=== PATIENT | female | born 1980 | race Two or more races ===

== ENCOUNTER 2023-07-20 16:46 | Emergency (ER) | payer MEDICAID, SELFPAY ==
--- NOTE | 2023-07-20 | ECG_ITS ---
Test Reason : CX PAIN Blood Pressure : / mmHG Vent. Rate : 076 BPM Atrial Rate : 076 BPM P-R Int : 116 ms QRS Dur : 096 ms QT Int : 378 ms P-R-T Axes : 068 074 060 degrees QTc Int : 425 ms Normal sinus rhythm Normal ECG When compared with ECG of 11-OCT-2005 12:35, No significant change was found Referred By: Generic ED Physician Electronically Signed By:TIMOTHY MATTHEWS
--- NOTE | ~2023-07-20 | XR_ITS ---
EXAMINATION: XR CHEST CLINICAL INFORMATION: Chest pain COMPARISON: None available. TECHNIQUE: Frontal view of the chest was obtained. FINDINGS: No significant abnormality is noted involving the heart, lungs, mediastinum, bony thorax or soft tissues. XR/XR chest 1V IMPRESSION: Unremarkable examination.
[2023-07-20 16:58] VITALS: BP 109/77; PULSE 85; RESP 20; TEMP 36.4; O2SAT 99; BMI 18.0
--- NOTE | 2023-07-20 17:13 | ED.CHESTPAIN ---
HPI - Chest Pain General Chief Complaint: Chest Pain Stated Complaint: chest pain Related Data Allergies Allergy/AdvReac Type Severity Reaction Status Date / Time amoxicillin Allergy Hives Verified 10/08/23 05:48 Penicillins Allergy Hives Verified 10/08/23 05:48 [facility] Social History Social History Alcohol intake: current Alcohol intake frequency: a few times a month Smoked in Last 30 Days: Yes Use of substances other than those prescribed or required for medical reasons: No Advance Directives: No Patient : No Physical Exam Vital Signs: Vital Signs: Last Vital Signs Temp 97.6 F 07/20/23 16:58 Pulse 85 07/20/23 16:58 Resp 20 07/20/23 16:58 BP 109/77 07/20/23 16:58 Pulse Ox 99 07/20/23 16:58 O2 Del Method Room Air 07/20/23 16:58 BMI result Body Mass Index 18.0 Course Course Course Narrative: [place]- 42-year-old female presents for evaluation of chest pain. The chest pain started yesterday. She reports that she has chronic left shoulder pain related to in extent that was many years ago. Plan for labs, EKG, chest x-ray Discharge Plan Discharge Clinical Impression: Chest pain Patient Disposition: Left Without Being Seen Interventions: LWBS Worksheet Last Done: 07/20/23 18:58 Discharge Date/Time: 07/20/23 19:45
== END 2023-07-20 19:45 | disposition left against medical advice (07) ==
LOC: HO.ED 19:44
PROVIDERS: Emergency Provider Emergency Medicine
DX: R07.9 Chest pain, unspecified (principal); G89.29 Other chronic pain; M25.512 Pain in left shoulder
CPT/HCPCS: 71045; 93005; 99281; 99283

== ENCOUNTER 2023-10-08 05:37 | Emergency (ER) | payer MEDICAID, SELFPAY ==
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
[2023-10-08 05:43] VITALS: BP 108/62; PULSE 78; RESP 18; TEMP 36.6; O2SAT 98; BMI 17.4
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
[2023-10-08 06:44] LABS: MANUAL DIFF FLAG NO
[2023-10-08 06:46] LABS: Basophils Percent Auto 0.4 % (0-2); Eosinophils Percent Auto 0.5 % (0-4); Hematocrit 33.5 % (37.0-47.0); Hemoglobin 11.1 g/dl (12.0-16.0); Imm Gran Abs Auto 0.02 X10*3/uL (0.00-0.03); Imm Gran Pct Auto 0.3 % (0.0-0.4); Lymphocytes Absolute Auto 1.6 X10*3/uL (1.2-4.9); Lymphocytes Percent Auto 20.9 % (20-40); Mean Corpuscular HGB Conc 33.1 g/dl (31.0-35.0); Mean Corpuscular Hemoglobin 26.6 pg (27.0-33.0); Mean Corpuscular Volume 80.3 fL (80.0-98.0); Mean Platelet Volume 10.1 fL (9.4-12.3); Monocytes Absolute Auto 0.9 X10*3/uL (0.1-1.2); Monocytes Percent Auto 11.5 % (2-11); Neutrophils Absolute Auto 5.2 x10*3/uL (2.0-8.3); Neutrophils Percent Auto 66.4 % (45-73); Platelet Count 275 X10*3/uL (160-400); Red Blood Count 4.17 X10*6/uL (4.20-5.50); Red Cell Distribution Width 17.1 % (11.0-16.0); White Blood Count 7.8 X10*3/uL (4.8-10.8)
[2023-10-08 06:52] LABS: INTERNATIONAL NORM RATIO 0.9 (0.9-1.1); Prothrombin Time 10.4 SEC (11.1-13.3)
[2023-10-08 06:55] LABS: Partial Thromboplastin Time 28.1 SEC (26.0-36.4)
[2023-10-08] MEDS: 0.9 % Sodium Chloride 1,000 ML 999 ML IV (07:02)
[2023-10-08] MEDS: Morphine Sulfate 4 MG/ML CARTRIDGE IVPUSH (07:02)
[2023-10-08] MEDS: ondansetron HCL 4 MG/2 ML VIAL IVPUSH (07:02)
[2023-10-08 07:14] LABS: Alanine Aminotransferase 13 U/L (0-31); Albumin Level 3.5 g/dL (3.5-5.0); Alkaline Phosphatase 78 U/L (39-117); Anion Gap 10 (12-20); Aspartate Amino Transferase 21 U/L (5-31); Bilirubin Total 0.1 mg/dL (0.0-1.0); Blood Urea Nitrogen 9 mg/dL (9-16); Calcium 8.8 mg/dL (8.4-10.2); Carbon Dioxide 24 mmol/L (22-29); Chloride 113 mmol/L (96-108); Creatinine Clr Calc Pharmacy 71.6; Estimated Glomerular Filt Rate > 60; Glucose Random 103 mg/dL (60-115); Lipase 40 U/L (8-78); Potassium 4.1 mmol/L (3.3-5.1); Sodium 143 mmol/L (135-145); Total Protein 6.5 g/dL (6.5-8.0)
--- NOTE | 2023-10-08 07:20 | PC.NURSE ---
assumed care of pt at 0700. pt resting quietly, sleeping on stretcher. rr even/unlabored. fluids infusing per mar. call diego within reach. plan of care ongoing.
[2023-10-08 07:26] LABS: HCG Quantitative < 2 mIU/mL
--- NOTE | 2023-10-08 08:11 | PC.NURSE ---
pt woken up to place on bedside telemetry monitor. pt stating 9/10 pain to the right side of face. area around eye and cheek appear swollen and bruised. pt also reporting 8/10 BL rib pain. pt requesting food and coffee. will have to wait until CT scan/report is back.
--- NOTE | 2023-10-08 08:20 | PC.NURSE ---
pt in CT scan
[2023-10-08] MEDS: iohexoL 350 MG/ML 100 ML INFUS..BTL IV (08:37)
[2023-10-08 09:04] VITALS: BP 123/73; PULSE 66; RESP 21; TEMP 36.6; O2SAT 100
[2023-10-08 09:52] LABS: Influenza A PCR NEGATIVE (Negative); Influenza B PCR NEGATIVE (Negative); Resp Syncy Virus RNA Qual PCR NEGATIVE (Negative); SARS COV2 PCR INHOUSE NEGATIVE (Negative)
== END 2023-10-08 09:45 | disposition home or self-care (01) ==
PROVIDERS: Emergency Medicine Emergency Medical Services; Emergency Provider Emergency Medicine
DX: S00.11XA Contusion of right eyelid and periocular area, initial encounter (principal); Y04.2XXA Assault by strike against or bumped into by another person, initial encounter; R07.9 Chest pain, unspecified; R51.9 Headache, unspecified; R10.9 Unspecified abdominal pain; F17.210 Nicotine dependence, cigarettes, uncomplicated; Y93.89 Activity, other specified; Y92.9 Unspecified place or not applicable; Y99.9 Unspecified external cause status; Z20.822 Contact with and (suspected) exposure to COVID-19; Z20.828 Contact with and (suspected) exposure to other viral communicable diseases
CPT/HCPCS: 0241U; 36415; 70450; 71260; 72125; 74177; 80053; 83690; 84702; 85025; 85610; 85730; 96361; 96374; 96375; 99284; J2270; J2405; Q9967

== ENCOUNTER 2024-02-23 18:07 | Emergency (ER) | payer MEDICAID, SELFPAY | END 2024-02-23 19:53 | disposition left against medical advice (07) | PROVIDERS: Emergency Provider Emergency Medicine | DX: M79.643 Pain in unspecified hand (principal) ==

== ENCOUNTER 2024-03-13 03:51 | Emergency (ER) | payer MEDICAID, SELFPAY ==
--- NOTE | ~2024-03-13 | XR_ITS ---
EXAMINATION: XR CHEST CLINICAL INFORMATION: Chest/rib pain after fall COMPARISON: 10/08/2023 TECHNIQUE: 2 views of the chest were obtained. FINDINGS: The lungs are clear with no focal consolidation. No evidence of pneumothorax, pulmonary edema, or pleural effusions. The cardiomediastinal silhouette is unremarkable. No acute osseous findings. XR/XR chest 2V IMPRESSION: No acute cardiopulmonary findings.
[2024-03-13 04:09] VITALS: BP 132/65; PULSE 65; RESP 19; TEMP 36.1; O2SAT 98; BMI 23.6
[2024-03-13 04:22] LABS: Basophils Percent Auto 0.4 % (0-2); Eosinophils Absolute Auto 0.1 X10*3/uL (0.0-0.4); Eosinophils Percent Auto 0.8 % (0-4); Hematocrit 34.4 % (37.0-47.0); Hemoglobin 11.6 g/dl (12.0-16.0); Imm Gran Abs Auto 0.02 X10*3/uL (0.00-0.03); Imm Gran Pct Auto 0.2 % (0.0-0.4); Lymphocytes Absolute Auto 2.7 X10*3/uL (1.2-4.9); Lymphocytes Percent Auto 27.8 % (20-40); MANUAL DIFF FLAG NO; Mean Corpuscular HGB Conc 33.7 g/dl (31.0-35.0); Mean Corpuscular Hemoglobin 27.2 pg (27.0-33.0); Mean Corpuscular Volume 80.6 fL (80.0-98.0); Mean Platelet Volume 9.9 fL (9.4-12.3); Monocytes Percent Auto 9.9 % (2-11); Neutrophils Absolute Auto 5.9 x10*3/uL (2.0-8.3); Neutrophils Percent Auto 60.9 % (45-73); Platelet Count 322 X10*3/uL (160-400); Red Blood Count 4.27 X10*6/uL (4.20-5.50); Red Cell Distribution Width 16.1 % (11.0-16.0); White Blood Count 9.6 X10*3/uL (4.8-10.8)
[2024-03-13 04:35] LABS: Anion Gap 13 (12-20); Blood Urea Nitrogen 13 mg/dL (9-16); Calcium 9.4 mg/dL (8.4-10.2); Carbon Dioxide 27 mmol/L (22-29); Chloride 101 mmol/L (96-108); Creatinine Clr Calc Pharmacy 57.7; Estimated Glomerular Filt Rate > 60; Glucose Random 117 mg/dL (60-115); Potassium 3.7 mmol/L (3.3-5.1); Sodium 137 mmol/L (135-145)
[2024-03-13 06:30] VITALS: BP 120/69; PULSE 61; RESP 16; TEMP 36.3; O2SAT 98
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
[2024-03-13 08:06] VITALS: BP 121/74; PULSE 62; RESP 16; TEMP 36.7; O2SAT 98
[2024-03-13 08:07] VITALS: BP 121/74; PULSE 62; RESP 16; TEMP 36.7; O2SAT 98
== END 2024-03-13 08:08 | disposition home or self-care (01) ==
PROVIDERS: Emergency Provider Emergency Medicine
DX: R07.81 Pleurodynia (principal); R04.0 Epistaxis; R51.9 Headache, unspecified; Z79.899 Other long term (current) drug therapy
CPT/HCPCS: 36415; 71046; 80048; 85025; 99283; 99284

== ENCOUNTER 2024-03-20 14:55 | Emergency (ER) | payer MEDICAID, SELFPAY ==
--- NOTE | 2024-03-20 | ECG_ITS ---
Test Reason : CHEST PAIN Blood Pressure : / mmHG Vent. Rate : 072 BPM Atrial Rate : 072 BPM P-R Int : 120 ms QRS Dur : 090 ms QT Int : 382 ms P-R-T Axes : 057 073 059 degrees QTc Int : 418 ms Normal sinus rhythm Normal ECG When compared with ECG of 20-JUL-2023 16:53, No significant change was found Referred By: Generic ED Physician Electronically Signed By:Chandan Nettles
[2024-03-20 14:57] VITALS: BP 110/70; PULSE 76; O2SAT 97
[2024-03-20 15:13] VITALS: BMI 21.0
--- NOTE | 2024-03-20 15:26 | ED_ITS ---
HPI - Chest Pain General Chief Complaint: Chest Pain Stated Complaint: CHEST PAIN,PT ?'S ANIETY ATTACK IN [employer] CUSTODY Time Seen by Provider: 03/20/24 15:19 Source: patient Mode of arrival: other Limitations: no limitations History of Present Illness HPI narrative: 43-year-old female past medical history of asthma and heart murmur presents emergency department after being in police custody complaining of chest pain for 2 hours she also states that her left breast is bleeding. MD complaint: chest pain Related Data Previous Rx's ?Medication ?Instructions ?Recorded fluticasone propionate 50 1 spray intranasal DAILY PRN nasal 03/13/24 mcg/actuation nasal congestion #16 grams spray,suspension (Allergy Relief (fluticasone)) lidocaine 5 % topical patch 1 patch topical DAILY #30 ea 03/13/24 acetaminophen 325 mg tablet 325 mg PO QID PRN pain #90 tabs 03/20/24 (Tylenol) ibuprofen 400 mg tablet 400 mg PO Q6H PRN Pain #60 tabs 03/20/24 Allergies Allergy/AdvReac Type Severity Reaction Status Date / Time amoxicillin Allergy Hives Verified 03/20/24 15:14 Penicillins Allergy Hives Verified 03/20/24 15:14 Review of Systems 2 Review of Systems: Review of systems: General: Patient denies any fever chills recent illness or falls Musculoskeletal: Denies back pain or body aches or other injuries HEENT: denies headache, runny nose, ear pain Respiratory: denies shortness of breath, cough Cardiovascular: chest pain no palpitations : denies dysuria, frequency Abdomen: no nausea vomiting denies abdominal pain Extremities: no swelling, no pain Skin: no diaphoresis Yes all other systems are reviewed and are negative PMFSH Past Medical History Medical History No pertinent past medical history Social History Social History Alcohol intake: former Smoked in Last 30 Days: Yes Use of substances other than those prescribed or required for medical reasons: Yes Substance Use Type: Crack/Cocaine and Marijuana Substance Use Frequency: Chronic Longstanding Last Used Substance: Days (ago) Advance Directives: No Advance Directives Information Provided: No Do you have a plan to hurt others: No Plan Physical Exam 2 Vital Signs: Vital Signs: Last Vital Signs Temp 98.4 F 03/20/24 15:30 Pulse 67 03/20/24 15:30 Resp 18 03/20/24 15:30 BP 128/85 03/20/24 15:30 Pulse Ox 97 03/20/24 15:30 O2 Del Method Room Air 03/20/24 15:30 BMI result Body Mass Index 21.0 General: Well-appearing well-nourished in no signs of distress HEENT: Normocephalic atraumatic Neck: No signs of JVD, no masses no tenderness or lymphadenopathy Cardiovascular: Regular rate and rhythm Respiratory: Clear to auscultation bilaterally Abdomen: Soft nontender no masses rectal exam performed guiac negative clinical quality manager confirmed. Extremities: Normal pedal pulses no signs of edema Skin: Dry warm no rashes Back: No tenderness full ROM Course Reevaluation(s) Reevaluation #1: Patient had normal x-ray and labs I do not have reason for pain I will send her home parents Tylenol ibuprofen which the precinct police sergeant I should make him be done. I did set her up with outpatient follow-up and explained the need for her to see a breast surgeon which he is happy to do. Patient but intermittently screaming in the hallway bone I talked to her she continued to have normal vitals and was redirectable. I do feel comfortable with her going home I do not think there is anything acute going on I do not think this is ACS or anything else concerning Medical Decision Making Medical Decision Making MDM Narrative: The patient looks x-ray was done. I will check labs EKG is normal Differential Diagnosis Differential Diagnoses: The differential diagnosis associated with the presentation includes Costochondritis chest pain ACS chest wall pain breast discharge rest mass Admission/Observation Consideration of admission/observation: Escalation of care including admission/observation considered Consult Healthcare Provider Management of the patient was discussed with: Director Of Audiology I spoke with Dr. Estrella about the breast he agrees an outpatient workup and recommended the patient follow up a breast surgeon. I spoke with Dr. Miller who is covering for breast surgery. He went the patient to have orders done for outpatient mammogram and ultrasound prior to seeing him in the office which were filled out and scheduled for outpatient orders Lab Data [facility] Lab Attestation statement: I reviewed the patient's lab results. 03/20/24 16:13 05/09/24 16:13 Labs: Lab Results 03/20/24 Range/Units 16:13 WBC 7.9 (4.8-10.8) X10*3/uL RBC 4.97 (4.20-5.50) X10*6/uL Hgb 13.2 (12.0-16.0) g/dl Hct 38.5 (37.0-47.0) % MCV 77.5 L (80.0-98.0) fL MCH 26.6 L (27.0-33.0) pg MCHC 34.3 (31.0-35.0) g/dl RDW 16.3 H (11.0-16.0) % Plt Count 323 (160-400) X10*3/uL MPV 9.9 (9.4-12.3) fL Immature Gran % (Auto) 0.4 (0.0-0.4) % Neut % (Auto) 77.9 H (45-73) % Lymph % (Auto) 15.2 L (20-40) % George % (Auto) 6.1 (2-11) % Eos % (Auto) 0.1 (0-4) % Baso % (Auto) 0.3 (0-2) % Lymph # (Auto) 1.2 (1.2-4.9) X10*3/uL George # (Auto) 0.5 (0.1-1.2) X10*3/uL Eos # (Auto) 0.0 (0.0-0.4) X10*3/uL Baso # (Auto) 0.0 (0.0-0.2) X10*3/uL Abs Immat Gran (auto) 0.03 (0.00-0.03) X10*3/uL Absolute Neuts (auto) 6.1 (2.0-8.3) x10*3/uL Absolute Nucleated RBC 0.000 (0.0-0.012) X10*3/uL Nucleated RBC % (auto) 0.0 (0.0-0.2) /100WBC Sodium 139 (135-145) mmol/L Potassium 4.0 (3.3-5.1) mmol/L Chloride 103 (96-108) mmol/L Carbon Dioxide 23 (22-29) mmol/L Anion Gap 17 (12-20) BUN 15 (9-16) mg/dL Creatinine 0.61 (0.5-1.4) mg/dL Estim Creat Clear Calc 94.0 Estimated GFR > 60 Random Glucose 95 (60-115) mg/dL Calcium 9.8 (8.4-10.2) mg/dL Troponin I High Sens < 2.7 (<3.5-17.0) ng/L Independent Interpretation I performed an independent interpretation of an: EKG and Plain X-Ray Interpretation: Rate 72 normal sinus rhythm normal intervals no signs of ischemia no change from previous interpreted by me Scores Heart Score History: -0- slightly suspicious ECG: -0- normal Age: -0- < or = 45 Risk factory: -0- no risk factors known Troponin: -0- < or = normal limit Score: 0 Risk: 1.7% Discharge Plan Discharge Clinical Impression: Chest pain Patient Disposition: Home, Self-Care Instructions: Chest Pain (DC) Additional Instructions: You were seen in the emergency department for chest pain and discharge from her left breast. Please call follow-up I did give you a referral to a breast surgeon. You had labs x-ray and everything was normal. Please call follow-up if you have any other concerns please return to the emergency department. Prescriptions: New acetaminophen [Tylenol] 325 mg tablet 325 mg PO QID PRN (Reason: pain) Qty: 90 0RF ibuprofen 400 mg tablet 400 mg PO Q6H PRN (Reason: Pain) Qty: 60 0RF No Action lidocaine 5 % adhesive patch,medicated 1 patch topical DAILY Qty: 30 0RF Rx Instructions: leave on most painful area for up to 12 hrs fluticasone propionate [Allergy Relief (fluticasone)] 50 mcg/actuation spray,suspension 1 spray intranasal DAILY PRN (Reason: nasal congestion) Qty: 16 0RF Rx Instructions: administer into each nostril Referrals: Cody Miller MD [Physician] - (Please call to follow up for your breast discharge. If you have any other concerns please return to the ER.) Print Language: Hungarian
[2024-03-20 15:30] VITALS: BP 128/85; PULSE 67; RESP 18; TEMP 36.9; O2SAT 97
[2024-03-20 16:17] LABS: MANUAL DIFF FLAG NO
[2024-03-20 16:20] LABS: Basophils Percent Auto 0.3 % (0-2); Eosinophils Percent Auto 0.1 % (0-4); Hematocrit 38.5 % (37.0-47.0); Hemoglobin 13.2 g/dl (12.0-16.0); Imm Gran Abs Auto 0.03 X10*3/uL (0.00-0.03); Imm Gran Pct Auto 0.4 % (0.0-0.4); Lymphocytes Absolute Auto 1.2 X10*3/uL (1.2-4.9); Lymphocytes Percent Auto 15.2 % (20-40); Mean Corpuscular HGB Conc 34.3 g/dl (31.0-35.0); Mean Corpuscular Hemoglobin 26.6 pg (27.0-33.0); Mean Corpuscular Volume 77.5 fL (80.0-98.0); Mean Platelet Volume 9.9 fL (9.4-12.3); Monocytes Absolute Auto 0.5 X10*3/uL (0.1-1.2); Monocytes Percent Auto 6.1 % (2-11); Neutrophils Absolute Auto 6.1 x10*3/uL (2.0-8.3); Neutrophils Percent Auto 77.9 % (45-73); Platelet Count 323 X10*3/uL (160-400); Red Blood Count 4.97 X10*6/uL (4.20-5.50); Red Cell Distribution Width 16.3 % (11.0-16.0); White Blood Count 7.9 X10*3/uL (4.8-10.8)
[2024-03-20 16:34] LABS: Anion Gap 17 (12-20); Blood Urea Nitrogen 15 mg/dL (9-16); Calcium 9.8 mg/dL (8.4-10.2); Carbon Dioxide 23 mmol/L (22-29); Chloride 103 mmol/L (96-108); Estimated Glomerular Filt Rate > 60; Glucose Random 95 mg/dL (60-115); Sodium 139 mmol/L (135-145)
[2024-03-20 16:44] LABS: Troponin-I High Sensitivity < 2.7 ng/L (<3.5-17.0)
[2024-03-20] MEDS: Ibuprofen 400 MG TABLET PO (17:11)
[2024-03-20] MEDS: Acetaminophen 325 MG TABLET 650 MG PO (17:12)
[2024-03-20 17:22] VITALS: BP 128/85; PULSE 67; RESP 18; TEMP 36.9; O2SAT 97
== END 2024-03-20 17:23 | disposition home or self-care (01) ==
PROVIDERS: Emergency Provider Student in an Organized Health Care Education/Training Program
DX: R07.89 Other chest pain (principal); F41.9 Anxiety disorder, unspecified; Z79.899 Other long term (current) drug therapy
CPT/HCPCS: 36415; 80048; 84484; 85025; 93005; 99283; 99285

== ENCOUNTER → 2024-03-20 15:03 | Outpatient (BNV) | payer MEDICAID, SELFPAY | PROVIDERS: Emergency Provider Student in an Organized Health Care Education/Training Program; Visit Provider Internal Medicine Cardiovascular Disease | DX: R07.9 Chest pain, unspecified (principal) | CPT/HCPCS: 93010 ==

== ENCOUNTER 2025-11-06 06:53 | Emergency (ER) | payer MEDICAID, SELFPAY ==
[2025-11-06 07:11] VITALS: BP 106/71; PULSE 102; RESP 18; TEMP 36.9; O2SAT 98; BMI 21.2
--- NOTE | 2025-11-06 08:05 | ED_ITS ---
HPI - General Adult General Chief complaint: General Medical Stated complaint: missed methadone Time Seen by Provider: 11/06/25 08:05 Source: patient Mode of arrival: ambulatory Limitations: no limitations History of Present Illness ED Provider: Phoebe Cobb PA-C HPI narrative: Patient is a 44 year old female with a history of opiate use (currently on methadone 80mg) presenting to the emergency department today requesting help with detox placement and her methadone dose. Patient states that she was attempting to find her who is unhoused over the last few days and now she is out of her take home methadone doses and needs to be dosed. Patient states that she has also been using on top of her methadone and would like help with detox / treatment. Patient denies any thoughts of hurting herself or anyone else. . Patient denies any other complaints at this time. Related Data Home Medications ?Medication ?Instructions ?Recorded ?Confirmed methadone 10 mg/mL oral 80 mg PO DAILY 11/06/2510/13 concentrate (Methadone Intensol) Previous Rx's ?Medication ?Instructions ?Recorded fluticasone propionate 50 1 spray intranasal DAILY PRN nasal 03/13/24 mcg/actuation nasal congestion #16 grams spray,suspension (Allergy Relief (fluticasone)) lidocaine 5 % topical patch 1 patch topical DAILY #30 ea 03/13/24 acetaminophen 325 mg tablet 325 mg PO QID PRN pain #90 tabs 03/20/24 (Tylenol) ibuprofen 400 mg tablet 400 mg PO Q6H PRN Pain #60 t abs 03/20/24 Allergies Allergy/AdvReac Type Severity Reaction Status Date / Time amoxicillin Allergy Hives Verified 11/06/25 07:12 Penicillins Allergy Hives Verified 11/06/25 07:12 Review of Systems Constitutional: Constitutional: Reports as per HPI Eyes: Eyes: Reports as per HPI ENT: Reports as per HPI Cardiovascular: Cardiovascular: Reports as per HPI Respiratory: Respiratory: Reports as per HPI Gastrointestinal: Gastrointestinal: Reports as per HPI Genitourinary: Genitourinary: Reports as per HPI Musculoskeletal: Musculoskeletal: Reports as per HPI Integumentary/Breasts: Skin/Breast: Reports as per HPI Neurologic: Reports as per HPI Psychiatric: Psychiatric: Reports as per HPI Endocrine: Endocrine: Reports as per HPI Hematologic/Lymphatic: Hematologic/Lymphatic: Reports as per HPI Allergic/Immunologic: Allergic/Immunologic: Reports as per HPI PMFSH Past Medical History Attestation statement: The following information was validated with the patient. Source: old records reviewed and nursing notes reviewed Medical History No pertinent past medical history Social History Social History Alcohol intake: former Smoked in Last 30 Days: No Use of substances other than those prescribed or required for medical reasons: No Substance Use Type: Crack/Cocaine and Marijuana Advance Directives: No Advance Directives Information Provided: No Patient : No Physical Exam ED Vital Signs: Vital Signs - 24 hr 11/06/25 07:11 11/06/25 09:13 11/06/25 09:33 Temperature 98.4 F 98.6 F 98.6 F Pulse Rate 102 H 90 90 Respiratory Rate 18 16 16 Blood Pressure 106/71 118/83 118/83 Pulse Oximetry 98 99 99 Oxygen Delivery Method Room Air Room Air Room Air BMI result Body Mass Index 21.2 Const General: cooperative, no acute distress, alert and awake Nutritional Appearance: well nourished Orientation/consciousness: patient oriented x3 HENMT Head: Yes normal to inspection and Yes atraumatic Ears: hearing grossly normal bilaterally and external ears normal General nose exam: Normal external nose present, no nasal discharge noted and no epistaxis Face and sinus: Yes normal facial exam, No abrasion and No laceration Mouth: Normal oral and palatal mucosa present, no drooling and no muffled voice Eyes General: appearance normal, both eyes and all related structures Periorbital: periorbital findings normal Eyelids: Yes eyelids normal Conjunctivae: conjunctivae normal Pupils: Equal, round and reactive pupils present EOM: EOMs intact bilaterally Neck Neck: Yes normal visual inspection and Yes full ROM Resp Effort & Inspection: normal respiratory effort and able to speak in complete sentences Neuro General: patient oriented x3, moves all extremities and CN's II-XI intact bilaterally Cranial nerves: Yes Equal, round and reactive pupils present Cognition (Neuro): normal cognition Extrem General: Yes normal to inspection, Yes full ROM and Yes capillary refill normal Psych Appearance: grossly normal Mental Status: mental status grossly normal Affect: normal affect Attitude: cooperative Thought process: Normal thought process present Thought content: Normal thought content present Insight: Good insight present (Psych) Medications Administered Discontinued Medications Generic Name Dose Route Start Last Admin Trade Name Lila GUILLORY Reason Stop Dose Admin Acetaminophen 650 mg 11/06/25 07:14 11/06/25 07:16 Acetaminophen 325 Mg Tablet PO 11/06/25 07:15 650 mg ONCE ONE Administration Ibuprofen 600 mg 11/06/25 07:14 11/06/25 07:16 Ibuprofen 600 Mg Tablet PO 11/06/25 07:15 600 mg ONCE ONE Administration Methadone HCl 80 mg 11/06/25 09:03 11/06/25 09:24 Methadone Hcl 20 Mg/2 Ml Oral.Conc PO 11/06/25 09:04 80 mg ONCE ONE Administration Naloxone HCl 8 mg 11/06/25 09:11 11/06/25 09:27 Naloxone Hcl Nasal Take Home 4 Mg [place] NOSTRILALT 11/06/25 09:12 Not Given ONCE ONE Medical Decision Making Medical Decision Making MDM Narrative: Patient is a 44 year old female with a history of opiate use (currently on methadone 80mg) presenting to the emergency department today requesting help with detox placement and her methadone dose. Patient's physical exam was as noted in the physical exam portion of this note. I explained my physical exam findings to the patient. I answered all questions asked by the patient. Patient's dose was verified. Patient was given methadone while in the department. The [facility] is open until 12pm today and the addiction team recommended she follow up with them today for help with detox placement. I stressed the importance of the patient taking her medication as directed (either prescribed or as the over the counter packaging recommends). I stressed the importance of the patient following up with her primary care provider and the [facility]. I stressed the importance of the patient returning to the emergency department immediately if she were to develop any dizziness, shortness of breath, difficulty breathing, chest pain, blurry vision, loss of vision, nausea, vomiting, abdominal pain, fever, chills, back pain, or any other complaints. Patient verbalized agreement and understanding with this treatment plan and discharge. Differential Diagnosis Differential Diagnoses: The differential diagnosis associated with the presentation includes Methadone use Substance use Opiate use disorder Admission/Observation Consideration of admission/observation: Escalation of care including admissio n/observation considered Patient would have been admitted to the hospital had her clinical presentation warranted hospital admission. Discharge Plan Discharge Clinical Impression: Methadone use, Opioid use disorder Patient Disposition: Home, Self-Care Instructions: Opioid Use Disorder (ED) Additional Instructions: You were seen in our Emergency Department for your methadone dose (80mg) and requesting assistance with decreasing your opiate use. You have been given Narcan to take home with you today, please keep it near you if you are going to use again, so others can use it on you if needed.? The number one risk for fatal overdose is using alone. [employer] is a / hotline where you can be on the phone with someone while you use, and they can call for help if they suspect an overdose: [phone] You may have been provided with safer injection?items, please take the time to take care of YOU and your health. Use new supplies whenever possible to lessen the chances of infections and other illnesses.? If you need more supplies, please go [facility]: [address] [place] [address] OR you can call or text to coordinate delivery of safer supplies: You have expressed interest in cutting down your use. Please call the numbers in the booklet provided to you OR you can go to the outpatient Addiction Treatment office which is open until 12pm today: [facility] (M-F 9am-5p) [address] [place] [address], [address] [phone] IF you are prescribed home medications and/or you are taking over the counter medications at home - it is very important you continue to do so as prescribed / directed unless told otherwise. Follow up with a primary care provider. Return to the emergency department immediately if your symptoms worsen or if you develop any numbness, tingling, dizziness, shortness of breath, difficulty breathing, chest pain, blurry vision, loss of vision, nausea, vomiting, abdominal pain, fever, chills, back pain, or any other complaints. If you do not have a primary care provider - call any of the below numbers to establish and follow up with a primary care provider. [facility] ([place]) [phone] [place] [address], [address] [facility] ([address] [place]) [phone] [address] [facility], [address] [facility], [address] [facility] ([address] [place]) [phone] [place] [address], [address] [facility], [address] [facility] ([place]) [phone] [place] [address] [address] [facility], [address] [facility] Family Medicine [phone] [address] [facility], [address] Please see the information below about our Patient Portal. If you are not yet enrolled in the [facility] Patient Portal, you will receive an enrollment email invitation following your visit to any [facility] setting. You may also self-enroll in the Patient Portal by visiting our website: [email or web address] The following information is required to access the Patient Portal: - Your [facility] Medical Record Number - Your personal home email address (must match what is in your electronic medical record, Registration staff can assist with this) - Name - Date of Capabilities of the Patient Portal: - Message some providers - View upcoming appointments - Access your health summary, medical history, and visit history - View current conditions and allergies - View procedure and lab results - View your medications, including guidelines, side effects, and precautions - Complete pre-appointment questionnaires requested by your provider - Ready summary reports of your office visits and procedures To access the Patient Portal Mobile Ana, follow these directions: - Search apomio in the Ana Store or Google Play Store - Download the Ana - Search for [facility] - Enter your login/password Prescriptions: No Action lidocaine 5 % adhesive patch,medicated 1 patch topical DAILY Qty: 30 0RF Rx Instructions: leave on most painful area for up to 12 hrs fluticasone propionate [Allergy Relief (fluticasone)] 50 mcg/actuation spray,suspension 1 spray intranasal DAILY PRN (Reason: nasal congestion) Qty: 16 0RF Rx Instructions: administer into each nostril acetaminophen [Tylenol] 325 mg tablet 325 mg PO QID PRN (Reason: pain) Qty: 90 0RF ibuprofen 400 mg tablet 400 mg PO Q6H PRN (Reason: Pain) Qty: 60 0RF methadone [Methadone Intensol] 10 mg/mL Concentrate 80 mg PO DAILY Referrals: [facility] [Provider Group] Referral Note: Please walk in to the clinic to discuss your opiate use and o ptions for cutting down / getting into treatment. They are open until 12pm today. Interventions: ED Discharge Assessment Last Done: 11/06/25 09:33 Discharge Date/Time: 11/06/25 09:33 Print Language: Palestinian
--- OUTSIDE RECORDS SUMMARY | 2025-11-06 08:10 | XMS_ITS | Encounter Summary ---
Author Organization [employer] Address [address] [place] [address] [address] [place] [address] Care Team Providers Care Wood Room Supervisor Name Role Phone SabinoAraceli stratton Unavailable Unavailable [facility] Primary Care Provider [phone] [facility] Primary Care Provider [phone] Dipti Chapa MD Unavailable [phone] Reason for Visit * Reason Onset Date Comments Med Refill 08/27/2023 Encounter Details Date Type Department Care Team (Late st Contact Info) Description 08/27/2023 Refill Joyce [facility] [address] [place] [address] [facility] [address] [place] [address] Carpal tunnel syndrome on both sides Social History Tobacco Use Types Packs/Day Years Used Date Smoking Tobacco: Every Day Cigarettes Smokeless Tobacco: Never Comments:3 cigarettes daily Alcohol Use Standard Drinks/Week Comments Not Currently 0 (1 standard drink = 0.6 oz pur e alcohol) Housing Stability Answer Date Recorded What is your housing situation today? I do not have housing (Staying with others, in a hotel, in a jail, living outside on the street, on a beach, in a car, or in a park 08/23/[address] you li ve. Do you have problems with any of the following? None of the above 08/23/2023 Food Insecurity Answer Date Recorded Within the past 12 months, y ou worried that your food would run out before you got money to buy more: Often true 08/27/2023 Within the past 12 months,th e food you bought just didn't last and you didn't have enough money to get more: Often true Transportation Answer Date Recorded In the past 12 months, has l ack of transportation kept you from medical appts, meetings, work or from getting things needed for daily living? Yes, it has kept me from non-medical meetings, work, or getting things that I need;Yes, it has kept me from medical appointments or getting medications. 08/23/2023 Utilities Answer Date Recorded In the past 12 months, has t he electric, gas, oil or water company threatened to shut off services in your home? No 08/27/2023 Depression Answer Date Recorded Patient Health Questionnaire-2 Score 2 04/05/2023 Education Answer Date Recorded What is the highest level of school you have completed or the highest degree you have received? 3rd grade 02/07/2023 Comments No Sex and Gender Information Value Date Recorded Sex Assigned at Female 02/02/2023 1:24 PM EDT Legal Sex Female 1:22 PM EDT Gender Identity Female 02/02/2023 1:24 PM EDT Sexual Orientation Choose not to disclose 2022 1:24 PM EDT documented as of this encounter Miscellaneous Notes * Telephone Encounter - Naila Phelps - 08/27/2023 12:00 PM EDT [facility] Last fill Date:07/14 Last OV:08/01 Next OV:09/05 Last UTOX:03/02 CSA Date:None DNF Date: Please advise on antibiotic * Telephone Encounter - Vannessa Mendoza - 08/27/2023 11:53 AM EDT Patient would like a refill of her Oxycodone [facility] pharmacy [facility] in [place]. Also looking for a medication for her UTI and yeast infection. Please advise documented in this encounter Plan of Treatment Not on file documented as of this encounter Visit Diagnoses Diagnosis Carpal tunnel syndrome on both sides Carpal tunnel syndrome documented in this encounter Care Teams Wood Room Supervisor Relationship Specialty Start Date End Date Roxana Velazquez FNP [address] [place] [address] PCP - General Family Medicine 02/07/23 04/24/24 Roxana Velazquez FNP [address] [place] [address] PCP - General Family Medicine 05/05/24 Araceli Gallo Health Navigator Financial Counseling and Assistance Services 02/06/23 Dipti Chapa MD [address] [place] [address] Referring Physician Family Medicine 05/07/24 documented as of this encounter
--- OUTSIDE RECORDS SUMMARY | 2025-11-06 08:10 | XMS_ITS | Clinical Summary ---
Author Organization [employer] Address [address] [place] [address] 7[address] [place] [address] Care Team Providers Care Film Writer Name Role Phone Araceli Gallo Unavailable [facility] Primary Care Provider [phone] Dipti Chapa MD Unavailable [phone] Allergies Active Allergy Reactions Criticality Noted Date Comments Clavulanic Acid Low 03/02/2023 Other reaction(s): Hives/Skin Rash Penicillins Low 03/02/2023 Other reaction(s): Hives/Skin Rash, Hives/Skin Rash Medications QUEtiapine (SEROquel) 25 MG tabletIndications :Bipolar 1 disorder with moderate myles (CMS/HCC) (HCC) Take 2 tablets (50 mg) by mouth at bedtime. 60 tablet 5 3 Active Fluticasone Furoate-Vilantero l (Breo Ellipta) 100-25 MCG/ACT aerosol powderIndications :Moderate persistent asthma without complication Inhale 1 puff in the morning. 28 each 3 Active ARIPiprazole (Abilify) 2 MG tabletIndications :Bipolar 1 disorder with moderate myles (CMS/HCC) (HCC) TAKE 1 TABLET (2 MG) BY MOUTH IN THE MORNING 30 tablet 3 Active gabapentin (Neurontin) 300 MG capsuleIndication s:Chronic bilateral low back pain with left-sided sciatica,Chronic neck pain TAKE 1 CAPSULE BY MOUTH 3 TIMES A DAY NEEDED FOR PAIN 90 capsule 4 Active albuterol (Ventolin HFA) 108 (90 Base) MCG/ACT inhalerIndication s:Moderate persistent asthma without complication INHALE 2 PUFFS EVERY 4 (FOUR) HOURS IF NEEDED FOR WHEEZING OR SHORTNESS OF BREATH. 18 g 4 Active FLUoxetine (PROzac) 20 MG capsuleIndication s:PTSD (post-traumatic stress disorder) TAKE 2 CAPSULES (40 MG) BY MOUTH IN THE MORNING. FOR PTSD 180 capsule 4 Active Active Problems Problem Noted Date Diagnosed Date Bipolar affective disorder, mixed, moderate (CMS /HCC) 03/02/2023 Night terrors 03/02/2023 PTSD (post-traumatic stress disorder) 03/02/2023 Acne vulgaris 03/02/2023 Cocaine use disorder in remission 03/02/2023 Chronic neck pain 03/02/2023 Chronic bilateral low back pain with left-sided sciatica 03/02/2023 Chronic migraine without aur a without status migrainosus, not intractable 03/02/2023 Moderate persistent asthma without complication 03/02/2023 Tobacco use disorder 03/02/2023 Immunizations Immunization Administration Dates Next Due Moderna Covid-19 Vaccine 12+ 09/05/2023 Family History Medical History Relation Name Comments Asthma Brother Bipolar disorder Brother Heart murmur Father Cancer Maternal Grandfather Diabetes Maternal Grandfather Cancer Maternal Grandmother Diabetes Maternal Grandmother Asthma Mother Diabetes Mother Seizures Mother Leukemia Mother's Sister Relation Name Status Comments Brother Father Maternal Grandfather Maternal Grandmother Mother Alive Mother's Sister Social History Tobacco Use Types Packs/Day Years Used Date Smoking Tobacco: Every Day Cigarettes Smokeless Tobacco: Never Tobacco Cessation:Ready to Q uit: Not Asked; Counseling Given: Not Answered Comments:3 cigarettes daily Alcohol Use Standard Drinks/Week Comments Not Currently 0 (1 standard drink = 0.6 oz pur e alcohol) Housing Stability Answer Date Recorded What is your housing situation today? I do not have housing (Staying with others, in a hotel, in a long-term, living outside on the street, on a [...] not to disclose 2022 1:24 PM EDT Last Filed Vital Signs Vital Sign Reading Time Taken Comments Blood Pressure 121/75 09/28/2023 9:05 AM EST Pulse 115 09/28/2023 9:05 AM EST Temperature 36.9 C (98.5 F) 09/28/2023 9:05 AM EST Respiratory Rate 16 09/05/2023 11:16 AM EDT Oxygen Saturation 98% 09/28/2023 9:05 AM EST Inhaled Oxygen Concentration - - Weight 39.1 kg (86 lb 3.2 oz) 09/28/2023 9:05 AM EST Height 142.2 cm (4' 8 ) 09/28/2023 9:05 AM EST Body Mass Index 19.33 09/28/2023 9:05 AM EST Plan of Treatment Health Maintenance Due Date Last Done Comments Disability Screening 1980 Alcohol/Substance Use Screening 1992 Family Planning (PISQ) 1995 HPV Vaccines (1 - 3-dose series) 1995 DTaP/Tdap/Td Vaccines (1 - Tdap) 1999 Hepatitis B Vaccines (1 of 3 - 19+ 3-dose series) 1999 Pneumococcal Vaccine: Pediatrics (0 to 5 Years) and At-Risk Patients (6 to 49) Years (1 of 2 - PCV) 1999 Pap Smear 2001 Cervical Cancer Screening 2010 HPV/Cotest 2010 Mammogram 2020 Depression Screening 04/05/2024 04/05/2023, 04/05/2023 SDOH Screening 04/05/2024 04/05/2023 Tobacco Screening 09/05/2024 09/05/2023 COVID-19 Vaccine (2 - 2024-2 6 season) 2025 09/05/2023 Influenza Vaccine (#1) 2025 Zoster Vaccines (1 of 2) 2030 RSV Patients and Patients Aged 60 years or older (1 - 1-dose 75+ series) 2055 Hepatitis C Screening Completed 03/06/2023 , 03/02/2023 HIV Screening Completed 09/07/2023, 03/02/2023 HIB Vaccines Aged Out No longer eligi ble based on patient's age to complete this topic Hepatitis A Vaccines Aged Out No long er eligible based on patient's age to complete this topic IPV Vaccines Aged Out No longer eligi ble based on patient's age to complete this topic Meningococcal B Vaccine Aged Out No l onger eligible based on patient's age to complete this topic Meningococcal Vaccine Aged Out No estella tatianna eligible based on patient's age to complete this topic RSV under 20 months Aged Out No longe r eligible based on patient's age to complete this topic Rotavirus Vaccines Aged Out No longer eligible based on patient's age to complete this topic Procedures Procedure Name Priority Date/Time Associated Diagnosis Comments HIV ANTIBODY/ANTIGEN, 4TH GENERATION Routine 09/07/2023 12:07 PM EDT High risk bisexual behavior HEPATITIS C AB W/RFL RNA, PCR W/RFL GENOTYPE,LIPA Routine 03/06/2023 9:43 AM EDT Screen for STD (sexually transmitted disease) from Last 3 Months or Most Recently Relevant to Health Maintenance Results * HIV ANTIBODY/ANTIGEN, 4TH GENERATION (09/07/2023 12:07 PM EDT) Result 4th Gen HIV Antibody Antigen NEGATIVE (NEG) [facility] Comment: Negative for antibodies to HIV 1 and HIV 2 and P24 antigen. Reference range: Negative Additional note: Written patient authorization is required for each separate release of this test result. This test was performed on the MtoV Fractionation Supervisor immunoassay system. Testing performed or reported by [facility], a Service of [facility], [address] [place] [address] [facility] [place] [address] Medardo Weiner MD, [employer] Hand Engraver [facility]# [id number] Blood 09/07/2023 12:0 7 PM EDT 09/07/2023 5:49 PM EDT Dipti Chapa MD LAB BLOOD ORDERABLES Final Res ult Performing Organization Address City/[facility]/ZIP Co de Phone Number [facility] [address] [place] [address] * Hepatitis C Antibody with Reflex to HCV RNA,PCR w/Reflex to Genotype, LiPA (03/06/2023 9:43 AM EDT) [facility] LAB BLOOD ORDERABLES Sarah l Result Performing Organization Address City/[facility]/ZIP Co de Phone Number EXTERNAL LAB from Last 3 Months or Most Recently Relevant to Health Maintenance Insurance [facility] C3 Care Teams Film Writer Relationship Specialty Start Date End Date [facility] [address] [place] [address] PCP - General Family Medicine 05/05/24 Araceli Gallo Health Navigator Financial Counseling and Assistance Services 02/06/23 Dipti Chapa MD [address] [place] [address] Referring Physician Family Medicine 05/07/24
--- OUTSIDE RECORDS SUMMARY | 2025-11-06 08:10 | XMS_ITS | Encounter Summary ---
Author Organization [employer] Address [address] [place] [address] [address]t [place] [address] Care Team Providers Care Rn Wound Care Name Role Phone SabinoAraceli Unavailable Unavailable [facility] Primary Care Provider [phone] Dipti Chapa MD Unavailable [phone] Reason for Visit * Reason Comments Med Refill Encounter Details Date Type Department Care Team (Late st Contact Info) Description 07/10/2024 Refill Joyce [facility] [address] [place] [address] Dipti Chapa MD [address] [place] [address] PTSD (post-traumatic stress disorder) Social History Tobacco Use Types Packs/Day Years Used Date Smoking Tobacco: Every Day Cigarettes Smokeless Tobacco: Never Comments:3 cigarettes daily Alcohol Use Standard Drinks/Week Comments Not Currently 0 (1 standard drink = 0.6 oz pur e alcohol) Housing Stability Answer Date Recorded What is your housing situation today? I do not have housing (Staying with others, in a hotel, in a senior living, living outside on the street, on a [...] encounter Miscellaneous Notes * Telephone Encounter - Nai Garcia - 07/10/2024 8:27 AM EDT Med queued for provider to send if appropriate documented in this encounter Plan of Treatment Not on file documented as of this encounter Visit Diagnoses Diagnosis PTSD (post-traumatic stress disorder) Posttraumatic stress disorder documented in this encounter Care Teams Rn Wound Care Relationship Specialty Start Date End Date Roxana Velazquez FNP [address] [place] [address] PCP - General Family Medicine 05/05/24 Araceli Gallo Navigator Financial Counseling and Assistance Services 02/06/23 Dipti Chapa MD [address] [place] [address] Referring Physician Family Medicine 05/07/24 documented as of this encounter
--- OUTSIDE RECORDS SUMMARY | 2025-11-06 08:10 | XMS_ITS | Encounter Summary ---
Author Organization [employer] Address [address] [place] [address] [address] [place] [address] Care Team Providers Care Verification Manager Name Role Phone SabinoAraceli stratton Unavailable Unavailable [facility] Primary Care Provider [phone] [facility] Primary Care Provider [phone] Dipti Chapa MD Unavailable [phone] Reason for Visit * Reason Comments Med Refill Encounter Details Date Type Department Care Team (Late st Contact Info) Description 02/21/2024 Refill Joyce [facility] [address] [place] [address] [facility] [address] [place] [address] Chronic bilateral low back pain with left-sided sciatica; Chronic neck pain Social History Tobacco Use Types Packs/Day Years Used Date Smoking Tobacco: Every Day Cigarettes Smokeless Tobacco: Never Comments:3 cigarettes daily Alcohol Use Standard Drinks/Week Comments Not Currently 0 (1 standard drink = 0.6 oz pur e alcohol) Housing Stability Answer Date Recorded What is your housing situation today? I do not have housing (Staying with others, in a hotel, in a penitentiary, living outside on the street, on a [...] PM EDT documented as of this encounter Plan of Treatment Not on file documented as of this encounter Visit Diagnoses Diagnosis Chronic bilateral low back pain with left-sided sciatica Chronic neck pain Cervicalgia documented in this encounter Care Teams Verification Manager Relationship Specialty Start Date End Date Roxana Velazquez FNP [address] [place] [address] PCP - General Family Medicine 02/07/23 04/24/24 Roxana Velazquez FNP [address] [place] [address] PCP - General Family Medicine 05/05/24 Araceli Gallo Health Navigator Financial Counseling and Assistance Services 02/06/23 Dipti Chapa MD [address] [place] [address] Referring Physician Family Medicine 05/07/24 documented as of this encounter
--- OUTSIDE RECORDS SUMMARY | 2025-11-06 08:10 | XMS_ITS | Encounter Summary ---
Author Organization [employer] Address [address] [place] [address] [address] [place] [address] Care Team Providers Care Program Manufacturing Leader Name Role Phone SabinoAraceli Unavailable Unavailable [facility] Primary Care Provider [phone] [facility] Primary Care Provider [phone] Dipti Chapa MD Unavailable [phone] Reason for Visit * Reason Comments Med Refill Encounter Details Date Type Department Care Team (Late st Contact Info) Description 02/21/2024 Refill Joyce [facility] [address] [place] [address] Dipti Chapa MD [address] [place] [address] Bipolar 1 disorder with moderate myles (CMS/HCC) Social History Tobacco Use Types Packs/Day Years Used Date Smoking Tobacco: Every Day Cigarettes Smokeless Tobacco: Never Comments:3 cigarettes daily Alcohol Use Standard Drinks/Week Comments Not Currently 0 (1 standard drink = 0.6 oz pur e alcohol) Housing Stability Answer Date Recorded What is your housing situation today? I do not have housing (Staying with others, in a hotel, in a [place] [facility], living outside on the street, on a [...] encounter Miscellaneous Notes * Telephone Encounter - Hali Hollingsworth - 02/22/2024 4:09 PM EDT Clonazepam 2 Mg Tablet Masspat Last fill Date:01/08/24 Last OV:01/16/24 Next OV:03/26/24 Last UTOX:09/28/23 CSA Date:NA DNF Date:02/05/24 documented in this encounter Plan of Treatment Not on file documented as of this encounter Visit Diagnoses Diagnosis Bipolar 1 disorder with moderate myles (CMS/HCC) (HCC) documented in this encounter Care Teams Program Manufacturing Leader Relationship Specialty Start Date End Date Roxana Velazquez FNP [address] [place] [address] PCP - General Family Medicine 02/07/23 04/24/24 Roxana Velazquez FNP [address] [place] [address] PCP - General Family Medicine 05/05/24 Araceli Gallo Health Navigator Financial Counseling and Assistance Services 02/06/23 Dipti Chapa MD [address] [place] [address] Referring Physician Family Medicine 05/07/24 documented as of this encounter
--- NOTE | 2025-11-06 08:25 | PC.NURSE ---
Addendum entered by Asha Sher RN 11/06/25 09:07: Ana Maria- [facility] Treatment director; pt last dosed 10/23 80mg. Pt received 13 take home bottles. Form sent to pharmacy. ISIDORO Sandhu made aware. Original Note: Pt states she goes to [facility]- [address] [facility] [phone] This RN reached out to clinic with no answer- message left with call back number. Will reattempt to call back. ISIDORO Sandhu aware of situation.
[2025-11-06 09:13] VITALS: BP 118/83; PULSE 90; RESP 16; TEMP 37; O2SAT 99
--- NOTE | 2025-11-06 09:16 | HE.PHANOTE ---
Pt last received 80mg 10/[address] [phone], with 13 take home bottles. Pt Last took 11/05.
[2025-11-06] MEDS: methADONE HCl 20 MG/2 ML ORAL.CONC 80 MG PO (09:24)
--- NOTE | 2025-11-06 09:31 | PC.NURSE ---
Pt refused take home narcan/safe use kit. D/c with recovery/treatment resources. Pt ambulated out of ED with steady gait on RA.
[2025-11-06 09:33] VITALS: BP 118/83; PULSE 90; RESP 16; TEMP 37; O2SAT 99
--- NOTE | 2025-11-09 09:09 | MHC.CARE ---
Pt is Ly[facility]ed to [facility] to self-present for tx.? She is aware that as of this time, no bed has been secured but will self-present to [facility] for placement if there are beds available.
== END 2025-11-06 09:33 | disposition home or self-care (01) ==
PROVIDERS: Emergency Provider Emergency Medicine
DX: F11.90 Opioid use, unspecified, uncomplicated (principal)
CPT/HCPCS: 99283; 99284

== ENCOUNTER 2025-11-07 13:52 | Emergency (ER) | payer MEDICAID, SELFPAY ==
[2025-11-07 14:00] VITALS: BP 136/84; PULSE 86; O2SAT 99
[2025-11-07 14:11] VITALS: BP 118/84; PULSE 89; RESP 16; TEMP 36.3; O2SAT 99; BMI 20.2
--- NOTE | 2025-11-07 14:12 | ED_ITS ---
HPI - General Adult General Chief complaint: Psychiatric Symptoms Stated complaint: SI Time Seen by Provider: 11/07/25 14:01 Source: patient and EMS Mode of arrival: EMS Limitations: no limitations History of Present Illness ED Provider: Phoebe Cobb PA-C HPI narrative: Patient is a 44 year old female with a history of opiate use (currently on methadone 80mg) presenting to the emergency department today requesting help increased stress and suicidal ideation. Patient states that she has had a lot of stress lately being homeless and trying to locate her (who she has now found). Patient states that the stress of being homeless has caused her to consider committing suicide. Patient states that she has no plan at this time. Patient denies any other complaints at this time. Relieving factors: none Exacerbating factors: none Related Data Home Medications ?Medication ?Instructions ?Recorded ?Confirmed methadone 10 mg/mL oral 80 mg PO DAILY 11/06/2510/13 concentrate (Methadone Intensol) quetiapine 25 mg PO BID@0900,1200 11/0711/07/25 topiramate 50 mg tablet 100 mg PO DAILY 11/07/25 Previous Rx's ?Medication ?Instructions ?Recorded lidocaine 5 % topical patch 1 patch topical DAILY #30 ea 03/13/24 Allergies Allergy/AdvReac Type Severity Reaction Status Date / Time amoxicillin Allergy Hives Verified 11/07/25 14:13 Penicillins Allergy Hives Verified 11/07/25 14:13 Review of Systems 2 Constitutional: Constitutional: Reports as per HPI Eyes: Eyes: Reports as per HPI ENT: Reports as per HPI Cardiovascular: Cardiovascular: Reports as per HPI Respiratory: Respiratory: Reports as per HPI Gastrointestinal: Gastrointestinal: Reports as per HPI Genitourinary: Genitourinary: Reports as per HPI Musculoskeletal: Musculoskeletal: Reports as per HPI Integumentary/Breasts: Skin/Breast: Reports as per HPI Neurologic: Reports as per HPI Psychiatric: Psychiatric: Reports as per HPI Endocrine: Endocrine: Reports as per HPI Hematologic/Lymphatic: Hematologic/Lymphatic: Reports as per HPI Allergic/Immunologic: Allergic/Immunologic: Reports as per HPI PMFSH Past Medical History Attestation statement: The following information was validated with the patient. Source: old records reviewed and nursing notes reviewed Medical History No pertinent past medical history Social History Social History Unable to assess alcohol history related to: Unknown Alcohol intake: former Smoked in Last 30 Days: No Use of substances other than those prescribed or required for medical reasons: Unknown Substance Use Type: Crack/Cocaine and Marijuana Advance Directives: No Advance Directives Information Provided: No Patient : No Physical Exam ED Vital Signs: Vital Signs - 24 hr 11/08/25 15:36 11/08/25 17:56 11/08/25 22:21 Temperature 97.1 F 97 F Pulse Rate 70 70 Respiratory Rate 18 16 Blood Pressure 117/64 117/64 105/70 Pulse Oximetry 98 100 Oxygen Delivery Method Room Air Room Air 11/09/25 06:30 11/09/25 08:47 Temperature 98.5 F 98.5 F Pulse Rate 64 64 Respiratory Rate 16 16 Blood Pressure 92/66 92/66 Pulse Oximetry 98 Oxygen Delivery Method Room Air BMI result Body Mass Index 20.2 Const General: cooperative, alert and awake Orientation/consciousness: patient oriented x3 HENMT Head: Yes normal to inspection and Yes atraumatic Ears: hearing grossly normal bilaterally and external ears normal General nose exam: Normal external nose present, no nasal discharge noted and no epistaxis Face and sinus: Yes normal facial exam, No abrasion and No laceration Mouth: Normal oral and palatal mucosa present, no drooling and no muffled voice Eyes General: appearance normal, both eyes and all related structures Periorbital: periorbital findings normal Eyelids: Yes eyelids normal Conjunctivae: conjunctivae normal Pupils: Equal, round and reactive pupils present EOM: EOMs intact bilaterally Resp Effort & Inspection: normal respiratory effort and able to speak in complete sentences Neuro General: patient oriented x3, moves all extremities and CN's II-XI intact bilaterally Cranial nerves: Yes Equal, round and reactive pupils present Cognition (Neuro): normal cognition Extrem General: Yes full ROM Psych Appearance: grossly normal Mental Status: mental status grossly normal Attitude: cooperative Thought content: Suicidality present and no homicidality Course Reevaluation(s) Reevaluation #1: Time: 17:48 Date: 11/08/25 Provider: Chad Mixon MD Patient in physician observation for psychiatric evaluation.? No acute events reported overnight. No current complaints. VS stable.? Patient has been seen by the CARE team. They are attempting Respite placement. Will continue to monitor. Time: 06:03 Date: 11/09/25 Provider: Kari Rodas, DO Patient in physician observation for psychiatric evaluation.? No acute events reported overnight. No current complaints. VS stable.? pending care team final disposition. Will continue to monitor. Time: 08:23 Date: 11/09/25 Provider: Kari Rodas DO Physician observation ended at 08:23 Patient has been cleared for discharge by the CARE team. Will follow up as an outpatient. Plan to go to outpatient detox Medications Administered Discontinued Medications Generic Name Dose Route Start Last Admin Trade Name Freq PRN Reason Stop Dose Admin Clonidine HCl 0.1 mg 11/08/25 17:08 11/08/25 17:56 Clonidine Hcl 0.1 Mg Tablet PO 11/08/25 17:09 0.1 mg TID ONE Administration Protocol Diphenhydramine HCl 50 mg 11/08/25 14:11 11/08/25 14:27 Diphenhydramine Hcl 25 Mg Capsule PO 11/08/25 14:12 50 mg ONCE ONE Administration Gabapentin 300 mg 11/08/25 20:48 11/08/25 22:18 Gabapentin 300 Mg Capsule PO 11/08/25 20:49 300 mg ONCE ONE Administration Hydroxyzine HCl 25 mg 11/08/25 17:07 11/09/25 08:29 Hydroxyzine Hcl 25 Mg Tablet PO 25 mg BID PRN Administration Anxiety Lidocaine 1 patch 11/08/25 09:00 11/08/25 10:04 Lidocaine 4 % Patch Adh..Patch TRANSDERMA 1 patch DAILY LUIZ Administration Protocol Loperamide HCl 2 mg 11/08/25 14:11 11/08/25 14:27 Loperamide Hcl 2 Mg Capsule PO 11/08/25 14:12 2 mg ONCE ONE Administration Methadone HCl 80 mg 11/08/25 10:00 11/09/25 08:25 Methadone Hcl 20 Mg/2 Ml Oral.Conc PO 80 mg DAILY@0800 LUIZ Administration Quetiapine Fumarate 25 mg 11/08/25 09:00 11/09/25 08:25 Quetiapine Fumarate 25 Mg Tablet PO 25 mg BID@0900,1200 LUIZ Administration Topiramate 100 mg 11/08/25 09:00 11/09/25 08:25 Topiramate 100 Mg Tablet PO 100 mg DAILY LUIZ Administration Medical Decision Making Medical Decision Making [facility] Narrative: Patient is a 44 year old female with a history of opiate use (currently on methadone 80mg) presenting to the emergency department today requesting help increased stress and suicidal ideation. Patient's physical exam was as noted in the physical exam portion of this note. Patient's blood work was unremarkable. Patient's urine showed no acute process. Patient is COVID-19 positive. Patient is asymptomatic. I explained my physical exam findings as well as all test results to the patient. I answered all questions asked by the patient. Patient placed in observation at 1427 pending CARE team evaluation. Differential Diagnosis Differential Diagnoses: The differential diagnosis associated with the presentation includes Suicidal ideation Depression Use of the ER for temporary housing Admission/Observation Consideration of admission/observation: Escalation of care including admission/observation considered Patient's disposition will be determined after CARE Team evaluation. Lab Data [facility] Lab Attestation statement: I reviewed the patient's lab results. My interpretation of these results are in the MDM Rationale portion of this note. 11/07/25 15:33 11/07/25 15:33 Labs: Lab Results 11/07/25 11/07/25 Range/Units 15:33 16:11 WBC 7.1 (4.8-10.8) X10*3/uL RBC 4.51 (4.20-5.50) X10*6/uL Hgb 11.7 L (12.0-16.0) g/dl Hct 35.8 L (37.0-47.0) % MCV 79.4 L (80.0-98.0) fL MCH 25.9 L (27.0-33.0) pg MCHC 32.7 (31.0-35.0) g/dl RDW 14.3 (11.0-16.0) % Plt Count 337 (160-400) X10*3/uL MPV 9.8 (9.4-12.3) fL Immature Gran % (Auto) 0.4 (0.0-0.4) % Neut % (Auto) 61.2 (45-73) % Lymph % (Auto) 21.1 (20-40) % [place] % (Auto) 16.5 H (2-11) % Eos % (Auto) 0.4 (0-4) % Baso % (Auto) 0.4 (0-2) % Lymph # (Auto) 1.5 (1.2-4.9) X10*3/uL [place] # (Auto) 1.2 (0.1-1.2) X10*3/uL Eos # (Auto) 0.0 (0.0-0.4) X10*3/uL Baso # (Auto) 0.0 (0.0-0.2) X10*3/uL Abs Immat Gran (auto) 0.03 (0.00-0.03) X10*3/uL Absolute Neuts (auto) 4.4 (2.0-8.3) x10*3/uL Absolute Nucleated RBC 0.000 (0.0-0.012) X10*3/uL Nucleated RBC % (auto) 0.0 (0.0-0.2) /100WBC Sodium 141 (135-145) mmol/L Potassium 3.3 (3.3-5.1) mmol/L Chloride 104 (96-108) mmol/L Carbon Dioxide 26 (22-29) mmol/L Anion Gap 14 (12-20) BUN 11 (9-16) mg/dL Creatinine 0.67 (0.5-1.4) mg/dL Estim Creat Clear Calc 73.0 Estimated GFR > 60 Random Glucose 100 (60-115) mg/dL Calcium 9.1 D (8.4-10.2) mg/dL Total Bilirubin 0.3 (0.0-1.0) mg/dL AST 48 H (5-31) U/L ALT 49 H (0-31) U/L Alkaline Phosphatase 99 (39-117) U/L Total Protein 7.4 (6.5-8.0) g/dL Albumin 4.3 (3.5-5.0) g/dL Urine Color Yellow Urine Appearance Clear Urine pH 6.0 (5.0-9.0) Ur Specific [place] 1.015 (1.005-1.025) Urine Protein Negative (Neg-Trace) mg/dL Urine Glucose (UA) Negative (Negative) mg/dL Urine Ketones Negative (Negative) mg/dL Urine Blood Negative (Negative) Urine Nitrite Negative (Negative) Ur Leukocyte Esterase Negative (Negative) Salicylates < 5.0 L (15-30) mg/dL Urine Opiates Screen Not Detected (Not Detect) Ur Buprenorphine Scrn Positive H (Not Detect) ng/mL Ur Oxycodone Screen Not Detected (Not Detect) ng/mL Urine Methadone Screen Positive H (Not Detect) ng/mL Urine Fentanyl Screen POSITIVE H (Not Detect) Acetaminophen < 3 (<30) mcg/mL Ur Barbiturates Screen Not Detected (Not Detect) Ur Phencyclidine Scrn Not Detected (Not Detect) Ur Amphetamines Screen Not Detected (Not Detect) U Benzodiazepines Scrn Not Detected (Not Detect) Urine Cocaine Screen POSITIVE H (Not Detect) U Marijuana (THC) Screen POSITIVE H (Not Detect) Ethyl Alcohol < 10 mg/dL COVID-19 (SHA) Positive A (Negative) COVID-19 Clin Com See Note Independent Historian Clinical information obtained from an independent historian. History obtained from or confirmed by: EMS (EMS provided additional history and confirmed the history provided by the patient.) Discharge Plan Discharge Clinical Impression: Suicidal ideation, COVID-19 Patient Disposition: Home, Self-Care Instructions: Depression (ED), COVID-19 (Coronavirus Disease 2019) (ED) Additional Instructions: Please monitor your COVID symptoms return for any worsening symptoms or concerns such as severe chest pain or trouble breathing. Rest and stay hydrated wear a mask and protect others morning You were seen in our Emergency Department today for treatment of a behavioral health issue. It is important after your visit that you follow up with either your behavioral health provider or a primary care doctor within 7 days.? If you have trouble finding a therapist you can reach out to [address] [phone] The National Suicide and Crisis Lifeline can be reached 7 days a week 24 hours a day.? Call 988 to speak with someone.? Return for any worsening symptoms or concerns such as thoughts of self harm or harm to others. Please call 911 if you feel your mental health is worsening.? Prescriptions: No Action topiramate 50 mg tablet 100 mg PO DAILY quetiapine 25 mg tablet 25 mg PO BID@0900,1200 lidocaine 5 % adhesive patch,medicated 1 patch topical DAILY Qty: 30 0RF Rx Instructions: leave on most painful area for up to 12 hrs methadone [Methadone Intensol] 10 mg/mL Concentrate 80 mg PO DAILY Interventions: [place]-Suicide Risk Severity Scale Last Done: 11/08/25 22:21 ED Discharge Assessment Last Done: 11/09/25 08:47 Discharge Date/Time: 11/09/25 08:47 Print Language: Turkmen
--- NOTE | 2025-11-07 14:25 | ECG_ITS ---
Test Reason : MED CLEAR Blood Pressure : */* mmHG Vent. Rate : 73 BPM Atrial Rate : 73 BPM P-R Int : 130 ms QRS Dur : 92 ms QT Int : 408 ms P-R-T Axes : 53 58 41 degrees QTcB Int : 449 ms Normal sinus rhythm Normal ECG When compared with ECG of 20-Mar-2024 15:03, No significant change was found Referred By: Phoebe Cobb Electronically Signed By: KATIE TAYLOR MD
[2025-11-07 15:37] LABS: MANUAL DIFF FLAG NO
[2025-11-07 15:43] LABS: Hematocrit 35.8 % (37.0-47.0); Hemoglobin 11.7 g/dl (12.0-16.0); Imm Gran Abs Auto 0.03 X10*3/uL (0.00-0.03); Imm Gran Pct Auto 0.4 % (0.0-0.4); Lymphocytes Absolute Auto 1.5 X10*3/uL (1.2-4.9); Mean Corpuscular HGB Conc 32.7 g/dl (31.0-35.0); Mean Corpuscular Hemoglobin 25.9 pg (27.0-33.0); Mean Corpuscular Volume 79.4 fL (80.0-98.0); NRBC Abs Auto 0.000 X10*3/uL (0.0-0.012); NRBC Pct Auto 0.0 /100WBC (0.0-0.2); Platelet Count 337 X10*3/uL (160-400); Red Blood Count 4.51 X10*6/uL (4.20-5.50); White Blood Count 7.1 X10*3/uL (4.8-10.8)
[2025-11-07 15:48] LABS: COVID-19 Test Positive (Negative); IDNOW Serial# 58CA691E
[2025-11-07 16:00] LABS: Alanine Aminotransferase 49 U/L (0-31); Albumin Level 4.3 g/dL (3.5-5.0); Alkaline Phosphatase 99 U/L (39-117); Anion Gap 14 (12-20); Aspartate Amino Transferase 48 U/L (5-31); Blood Urea Nitrogen 11 mg/dL (9-16); Calcium 9.1 mg/dL (8.4-10.2); Carbon Dioxide 26 mmol/L (22-29); Chloride 104 mmol/L (96-108); Creatinine Clr Calc Pharmacy 73.0; Estimated Glomerular Filt Rate > 60; Potassium 3.3 mmol/L (3.3-5.1); Sodium 141 mmol/L (135-145); Total Protein 7.4 g/dL (6.5-8.0)
--- OUTSIDE RECORDS SUMMARY | 2025-11-07 16:00 | XMS_ITS | Encounter Summary ---
Author Organization [employer] Address [address] [place] [address] 7[address] [place] [address] Care Team Providers Care Section Supervisor Name Role Phone SabinoAraceli Unavailable Unavailable [facility] Primary Care Provider [phone] [facility] Primary Care Provider [phone] Dipti Chapa MD Unavailable [phone] Reason for Visit * Reason Comments Med Refill Encounter Details Date Type Department Care Team (Late st Contact Info) Description 02/21/2024 Refill Joyce [facility] [address] [place] [address] Dipti Chapa MD [address] [place] [address] Bipolar 1 disorder with moderate myles (CMS/HCC) [...] with others, in a hotel, in a skilled nursing, living outside on the street, on a [...] (HCC) documented in this encounter Care Teams Section Supervisor Relationship Specialty Start Date End Date Roxana Velazquez FNP [address] [place] [address] PCP - General Family Medicine 02/07/23 04/24/24 Roxana Velazquez FNP [address] [place] [address] PCP - General Family Medicine 05/05/24 Araceli Gallo Health Navigator Financial Counseling and Assistance Services 02/06/23 Dipti Chapa MD [address] [place] [address] Referring Physician Family Medicine 05/07/24 documented as of this encounter
--- OUTSIDE RECORDS SUMMARY | 2025-11-07 16:00 | XMS_ITS | Clinical Summary ---
Author Organization [employer] Address [address] [place] [address] 7t [place] [address] Care Team Providers Care Social Sciences Professor Name Role Phone Araceli Gallo Unavailable [facility] Primary Care Provider [phone] Dipti Chapa MD Unavailable [phone] Allergies Active Allergy Reactions Criticality Noted [...] with others, in a hotel, in a alf, living outside on the street, on a [...] 4th Gen HIV Antibody Antigen NEGATIVE (NEG) [facility] Comment: Negative for antibodies to HIV 1 and HIV 2 and P24 antigen. Reference range: Negative Additional note: Written patient authorization is required for each separate release of this test result. This test was performed on the [employer] Manager immunoassay system. Testing performed or reported by [facility], a Service of [facility], [address] [place] [address] [place] [address] Medardo Weiner MD, Campus Wellness Coordinator [facility]# [id number] Blood 09/07/2023 12:0 7 PM EDT 09/07/2023 5:49 PM EDT Dipti Chapa MD LAB BLOOD ORDERABLES Final Res ult Performing Organization Address City/[facility]/ZIP Co de Phone Number [facility] [address] [place] [address] * Hepatitis C Antibody with Reflex to HCV RNA,PCR w/Reflex to Genotype, Li[facility] (03/06/2023 9:43 AM EDT) [facility] LAB BLOOD ORDERABLES Sarah l Result Performing Organization Address City/[facility]/ZIP Co de Phone Number EXTERNAL LAB from Last 3 Months or Most Recently Relevant to Health Maintenance Insurance [facility] C3 Care Teams Social Sciences Professor Relationship Specialty Start Date End Date [facility] [address] [place] [address] PCP - General Family Medicine 05/05/24 Araceli Gallo Health Navigator Financial Counseling and Assistance Services 02/06/23 Dipti Chapa MD [address] [place] [address] Referring Physician Family Medicine 05/07/24
--- OUTSIDE RECORDS SUMMARY | 2025-11-07 16:00 | XMS_ITS | Encounter Summary ---
Author Organization [employer] Address [address] [place] [address] [address] [place] [address] Care Team Providers Care Federal Mediator Name Role Phone SabinoAraceli stratton Unavailable Unavailable [facility] Primary Care Provider [phone] [facility] Primary Care Provider [phone] Dipti Chapa MD Unavailable [phone] Reason for Visit * Reason Onset Date Comments Med Refill 08/27/2023 Encounter Details Date Type Department Care Team (Late st Contact Info) Description 08/27/2023 Refill Joyce [facility] [address] [place] [address] [facility] [address] [place] [address] Carpal tunnel syndrome on both sides Social [...] with others, in a hotel, in a assisted, living outside on the street, on a [...] would like a refill of her Oxycodone [facility] pharmacy [facility] in [place]. Also looking for a medication for her UTI and yeast infection. Please advise documented in this encounter Plan of Treatment Not on file documented as of this encounter Visit Diagnoses Diagnosis Carpal tunnel syndrome on both sides Carpal tunnel syndrome documented in this encounter Care Teams Federal Mediator Relationship Specialty Start Date End Date Roxana Velazquez FNP [address] [place] [address] PCP - General Family Medicine 02/07/23 04/24/24 Roxana Velazquez FNP [address] [place] [address] PCP - General Family Medicine 05/05/24 Araceli Gallo Health Navigator Financial Counseling and Assistance Services 02/06/23 Dipti Chapa MD [address] [place] [address] Referring Physician Family Medicine 05/07/24 documented as of this encounter
--- OUTSIDE RECORDS SUMMARY | 2025-11-07 16:00 | XMS_ITS | Encounter Summary ---
Author Organization [employer] Address [address] [place] [address] [address] [place] [address] Care Team Providers Care Water Resource Consultant Name Role Phone SabinoAraceli stratton Unavailable Unavailable [facility] Primary Care Provider [phone] [facility] Primary Care Provider [phone] Dipti Chapa MD Unavailable [phone] Reason for Visit * Reason Comments Med Refill Encounter Details Date Type Department Care Team (Late st Contact Info) Description 02/21/2024 Refill Joyce [facility] [address] [place] [address] [facility] [address] [place] [address] Chronic bilateral low back pain with left-sided [...] Cervicalgia documented in this encounter Care Teams Water Resource Consultant Relationship Specialty Start Date End Date Roxana Velazquez FNP [address] [place] [address] PCP - General Family Medicine 02/07/23 04/24/24 Roxana Velazquez FNP [address] [place] [address] PCP - General Family Medicine 05/05/24 Araceli Gallo Health Navigator Financial Counseling and Assistance Services 02/06/23 Dipti Chapa MD [address] [place] [address] Referring Physician Family Medicine 05/07/24 documented as of this encounter
--- OUTSIDE RECORDS SUMMARY | 2025-11-07 16:00 | XMS_ITS | Encounter Summary ---
Author Organization [employer] Address [address] [place] [address] [address] [place] [address] Care Team Providers Care Dog Control Officer Name Role Phone SabinoAraceli Unavailable Unavailable [facility] Primary Care Provider [phone] Dipti Chapa MD Unavailable [phone] Reason for Visit * Reason Comments Med Refill Encounter Details Date Type Department Care Team (Late st Contact Info) Description 07/10/2024 Refill Joyce [facility] [address] [place] [address] Dipti Chapa MD [address] [place] [address] PTSD (post-traumatic stress disorder) Social History Tobacco [...] disorder documented in this encounter Care Teams Dog Control Officer Relationship Specialty Start Date End Date Roxana Velazquez FNP [address] [place] [address] PCP - General Family Medicine 05/05/24 Araceli Gallo Navigator Financial Counseling and Assistance Services 02/06/23 Dipti Chapa MD [address] [place] [address] Referring Physician Family Medicine 05/07/24 documented as of this encounter
[2025-11-07 16:03] LABS: Salicylate < 5.0 mg/dL (15-30)
[2025-11-07 16:18] LABS: Appearance Urine Clear; Glucose Urine UA Negative (Negative); PH 6.0 (5.0-9.0); Specific Gravity - Urine 1.015 (1.005-1.025)
[2025-11-07 16:27] LABS: Acetaminophen LAB < 3 mcg/mL (<30)
[2025-11-07 16:30] LABS: Cannabinoid Screen Urine POSITIVE (Not Detect)
--- NOTE | 2025-11-07 16:49 | PC.NURSE ---
Med rec completed. pt able to list meds, unable to contact [facility] pharmacy due to weekend hours. per pharmacist gabapentin has not been filled in 2 years though pt states she is taking, not ordered at this time
[2025-11-08 01:04] VITALS: BP 112/79; PULSE 78; RESP 18; TEMP 36.1; O2SAT 98
--- NOTE | 2025-11-08 07:22 | PC.NURSE ---
Attempted to contact [facility] to verify Methadone dosage. Voicemail left with callback number. Awaiting call back to confirm. Clinic opened at 7am. Contacted number: .
--- NOTE | 2025-11-08 07:36 | PC.NURSE ---
Lidocaine 4% patch & Topamax 100mg doses requested from pharmacy at this time. Medications not available in ED BH Pod pyxis.
--- NOTE | 2025-11-08 09:52 | PC.NURSE ---
Confirmed Methadone 80mg by phone with Arsalan Gray. Form completed and faxed to pharmacy, spoke with Quin Triplett ([facility] pharmacist).
--- NOTE | 2025-11-08 09:54 | HE.PHANOTE ---
re methadone patients methadone maintenance verification form was received by pharmacy.patient is confirmed to be receiving 80 mg with ADELE Sanches [phone]. Last dose given 11/07/2025 with 0 take homes.
[2025-11-08] MEDS: Lidocaine 4 % Patch ADH..PATCH 1 PATCH TRANSDERMA (10:04)
[2025-11-08] MEDS: methADONE HCl 20 MG/2 ML ORAL.CONC 80 MG PO (10:36)
--- NOTE | 2025-11-08 12:09 | PHA.MEDREC ---
Pharmacy Consult ? Medication Reconciliation Pharmacy has reviewed the medication reconciliation done by nursing and also spoke to patient. She was able to name medication, strength and dosage.
--- NOTE | 2025-11-08 14:36 | PC.NURSE ---
Patient experiencing diarrhea & nausea. Medicated for both, as ordered by Dr. Mixon. Has taken multiple frequent trips to the bathroom suddenly. Care ongoing by this RN.
[2025-11-08 15:36] VITALS: BP 117/64; PULSE 70; RESP 18; TEMP 36.2; O2SAT 98
--- NOTE | 2025-11-08 16:45 | PC.NURSE ---
Patient approached this RN requesting Gabapentin & Hydroxyzine. This RN explained that I was told in report (& per previous nursing/pharmacy notes in EMR) that the patient hasn't been prescribed either medication since early 2023. Patient mildly agitated with this RN stating I get it from [facility] . Spoke with CARE team, pharmacy, no med list was given. Attempted to contact [facility] without success due to being after-hours. Message sent to provider (Dr. Hadley) regarding this, awaiting response.
--- NOTE | 2025-11-08 17:10 | PC.NURSE ---
Patient verbally claims (and provided self hand written list) claiming that the following listed medications are prescribed to her: Topamax 100mg 1x/day --- already ordered Seroquel 25mg 2x/day (AM & Noon) --- already ordered Hydroxyzine 25mg 3x/day (AM, Noon, PM) Gabapentin 600mg 3x/day (AM, Noon, PM) Clonidine 0.1mg 3x/day (AM, Noon, PM) Lidocaine patch 1x/day --- already ordered Methadone 80mg previously confirmed with [facility] Verónica ZAYAS (see previous notes). Dr. Hadley.
[2025-11-08 17:56] VITALS: BP 117/64
[2025-11-08 22:21] VITALS: BP 105/70; PULSE 70; RESP 16; TEMP 36.1; O2SAT 100
--- NOTE | 2025-11-08 22:53 | PC.NURSE ---
Patient awake and alert. skin pwd, resp even and non labored. patient has been calm and cooperative. denies SI/HI, reports depression. medicated w/ gabapentin per JAN.
[2025-11-09 06:30] VITALS: BP 92/66; PULSE 64; RESP 16; TEMP 36.9; O2SAT 98
[2025-11-09] MEDS: methADONE HCl 20 MG/2 ML ORAL.CONC 80 MG PO (08:25)
[2025-11-09 08:47] VITALS: BP 92/66; PULSE 64; RESP 16; TEMP 36.9
== END 2025-11-09 08:47 | disposition home or self-care (01) ==
PROVIDERS: Physician Assistant Medical; Emergency Provider Emergency Medicine
DX: F32.A Depression, unspecified (principal); R45.851 Suicidal ideations; U07.1 COVID-19; F11.20 Opioid dependence, uncomplicated; Z59.00 Homelessness unspecified; Z79.899 Other long term (current) drug therapy
CPT/HCPCS: 36415; 80053; 80143; 80179; 80307; 81003; 85025; 87635; 93005; 99285; S9485

== ENCOUNTER → 2025-11-07 14:25 | Outpatient (BNV) | payer MEDICAID, SELFPAY | PROVIDERS: Emergency Provider Emergency Medicine; Visit Provider Internal Medicine Cardiovascular Disease | DX: Z13.6 Encounter for screening for cardiovascular disorders (principal) | CPT/HCPCS: 93010 ==